=== PATIENT | male | born 1980 | race Caucasian/White ===

== ENCOUNTER 2018-11-28 10:42 | Emergency (ER) | payer OTHER ==
[~2018-11-28] VITALS: Ht 180.3 cm; Wt 79.5 kg
--- NOTE | 2018-11-28 12:02 | REP ---
RIGHT RIB SERIES: Five views including PA chest. HISTORY: Pain. FINDINGS: PA chest radiograph is normal. There is no evidence of infiltrate or free subdiaphragmatic air. Heart is not enlarged. Mediastinum is not widened. Pulmonary vasculature is not increased. Lung [place] clear. Multiple views of the right ribcage demonstrate intact right ribs without evidence of rib fracture or incidental bony destructive lesion. IMPRESSION: Negative right rib series. Electronically Signed by Hoang Khan MD 11/28/2018 05:27 P
[2018-11-28 12:14] VITALS: BP 136/84
== END 2018-11-28 12:20 | disposition home or self-care (01) ==
LOC: M ED 10:42
DX: S20.219A Contusion of unspecified front wall of thorax, initial encounter (principal); W22.8XXA Striking against or struck by other objects, initial encounter; Y92.018 Other place in single-family (private) house as the place of occurrence of the external cause; Z91.030 Bee allergy status; F17.210 Nicotine dependence, cigarettes, uncomplicated

== ENCOUNTER → 2020-07-29 | Outpatient (CLI) | payer SELFPAY | LOC: M LABSMTC 13:16 | PROVIDERS: ATTEND Pediatrics | DX: Z11.59 Encounter for screening for other viral diseases (principal) ==

== ENCOUNTER → 2020-09-01 | Outpatient (CLI) | payer OTHER | LOC: M LABSMTC 13:12 | PROVIDERS: ATTEND Family Medicine | DX: Z20.828 Contact with and (suspected) exposure to other viral communicable diseases (principal) ==

== ENCOUNTER 2020-09-04 15:41 | Emergency (ER) | payer OTHER ==
[~2020-09-04] VITALS: Ht 180.3 cm; Wt 79.2 kg
--- OUTSIDE RECORDS SUMMARY | 2020-09-04 15:50 | CCD ---
Author Author [facility] Organization [facility] Address Unknown Phone Unavailable Support Name Relationship Address Phone [facility] Next Of Kin [address] [place] [address] Unavailable LUCIO BROWN Next Of Kin [address] [place] [address] FROYLAN MONTEIRO Next Of Kin Unknown Re-disclosure Warning The records that you are about to access may contain information from federally-assisted alcohol or drug abuse programs. If such information is present, then the following federally mandated warning applies: This information has been disclosed to you from records protected by federal confidentiality rules (42 CFR part 2). The federal rules prohibit you from making any further disclosure of this information unless further disclosure is expressly permitted by the written consent of the person to whom it pertains or as otherwise permitted by 42 CFR part 2. A general authorization for the release of medical or other information is NOT sufficient for this purpose. The Federal rules restrict any use of the information to criminally investigate or prosecute any alcohol or drug abuse patient.The records that you are about to access may contain highly sensitive health information, the redisclosure of which is protected by Article 27-F of the [facility] Public Health law. If you continue you may have access to information: Regarding HIV / AIDS; Provided by facilities licensed or operated by the [facility] Office of Mental Health; or Provided by the [facility] Office for People With Developmental Disabilities. If such information is present, then the following [facility] mandated warning applies: This information has been disclosed to you from confidential records which are protected by state law. State law prohibits you from making any further disclosure of this information without the specific written consent of the person to whom it pertains, or as otherwise permitted by law. Any unauthorized further disclosure in violation of state law may result in a fine or care home sentence or both. A general authorization for the release of medical or other information is NOT sufficient authorization for further disc losure. Insurance Providers Payer name Policy type / Coverage type Policy ID Covered libertarian ID Covered libertarian's relationship to mott Policy Mott Plan Information [facility] ACTIVE DUTY [id number] SP [id number] SELF PAY ONLY [id number] SP [id number] [facility] CLAIM[facility] MAT[place]W -O/P [id number] 18 [id number] Results ID Date Data Source [id number] 09/01/2020 02:20:00 PM EST [facility] Name Value Range Interpretation Code Description Data Allyson rce(s) Supporting Document(s) SARS coronavirus 2 RNA Not Detected [facility] [place] This lab was ordered by [facility] and reported by [facility]. ID Date Data Source [id number] 07/29/2020 12:00:00 AM EST [facility] Name Value Range Interpretation Code Description Data Allyson rce(s) Supporting Document(s) 2019-nCoV RNA XXX TRINITY+probe-Imp [facility] This lab was [facility] and reported by [employer] Procedure
[2020-09-04] MEDS ORDERED: NS 1,000 ML IV ONE (16:45)
--- OUTSIDE RECORDS SUMMARY | 2020-09-04 17:04 | CCD ---
Author Author [facility] Organization [facility] Address Unknown Phone Unavailable Support Name Relationship Address Phone [facility] Next Of Kin [address] [place] [address] Unavailable LUCIO BROWN Next Of Kin [address] [place] [address] FROYLAN MONTEIRO Next Of Kin Unknown Re-disclosure [...] is protected by Article 27-F of the [facility] Public Health law. If you continue you may have access to information: Regarding HIV / AIDS; Provided by facilities licensed or operated by the [facility] Office of Mental Health; or Provided by the [facility] Office for People With Developmental Disabilities. If such information is present, then the following [facility] mandated warning applies: This information has been [...] law may result in a fine or custodial sentence or both. A general authorization for the release of medical or other information is NOT sufficient authorization for further disc losure. Insurance Providers Payer name Policy type / Coverage type Policy ID Covered alliance party ID Covered alliance party's relationship to mott Policy Mott Plan Information [facility] ACTIVE DUTY [id number] SP [id number] SELF PAY ONLY [id number] SP [id number] [facility] CLAIM[facility] MATTHEW -O/P [id number] 18 [id number] Results ID Date Data Source [id number] 09/01/2020 02:20:00 PM EST [facility] Name Value Range Interpretation Code Description Data Allyson rce(s) Supporting Document(s) SARS coronavirus 2 RNA Not Detected [facility] [place] This lab was ordered by [facility] and reported by [facility]. ID Date Data Source [id number] 07/29/2020 12:00:00 AM EST [facility] Name Value Range Interpretation Code Description Data Allyson rce(s) Supporting Document(s) 2019-nCoV RNA XXX TRINITY+probe-Imp [facility] This lab was ordered by [facility] and reported by [employer] Procedure
[2020-09-04 17:32] LABS: BASO # 0.1 10^3/uL (0.0-0.2); BASO % 0.8 % (0.0-1.0); EOS # 0.1 10^3/uL (0.0-0.5); HEMATOCRIT 47.9 % (42.0-52.0); HEMOGLOBIN 16.6 g/dl (13.5-17.5); LYMPH # 1.9 10^3/uL (1.5-5.0); LYMPH % 30.9 % (24.0-44.0); MEAN CORPUSCULAR HGB CONC 34.7 g/dl (32.0-36.5); MEAN CORPUSCULAR VOLUME 95.2 fl (80.0-96.0); MONO # 0.5 10^3/uL (0.0-0.8); MONO % 8.5 % (0.0-5.0); NEUTROPHILS # 3.6 10^3/uL (1.5-8.5); NEUTROPHILS % 58.6 % (36.0-66.0); PLATELET COUNT, AUTOMATED 162 10^3/uL (150-450); RED BLOOD COUNT 5.03 10^6/uL (4.30-6.10); WHITE BLOOD COUNT 6.1 10^3/uL (4.0-10.0)
[2020-09-04 18:00] LABS: ALBUMIN 4.5 GM/DL (3.2-5.2); BILIRUBIN,DIRECT 0.4 MG/DL (0.0-0.2); BILIRUBIN,TOTAL 1.3 MG/DL (0.2-1.0); TOTAL PROTEIN 7.4 GM/DL (6.4-8.2)
[2020-09-04 18:39] VITALS: BP 138/89
== END 2020-09-04 18:40 | disposition home or self-care (01) ==
LOC: M ED 15:41
DX: Z11.52 Encounter for screening for COVID-19 (principal); R19.7 Diarrhea, unspecified; M79.10 Myalgia, unspecified site; R50.9 Fever, unspecified; R61 Generalized hyperhidrosis; R00.2 Palpitations; R11.0 Nausea; R53.1 Weakness; F17.200 Nicotine dependence, unspecified, uncomplicated; Z91.030 Bee allergy status
CPT/HCPCS: 80047; 80076; 85025; 96360; 99284; U0003